=== PATIENT | female | born 1950 | race Caucasian/White ===

== ENCOUNTER → 2017-01-23 | Outpatient (CLI) | payer MEDICARE ==
[~2017-01-23] MED LIST: ACET-2267 PO; ALBU8.5H2 IH; ALPR0.5T7 PO; AMIT50TA3 PO; AMITRIPTYLINE; AMT50T; ASP81CT; ASPI-266 PO; ATOR20TA66 PO; BACL10TA PO; CEFD300C3 PO; CETI10TA20 PO; CHLR10C; CHLR10C PO; CHOL200018 PO; CYCL10TA45; CYCL10TA9; CYCL1DRO OU; DOXY100C49; EZET10TA5; FLUO40CA; FLUO40CA PO; FLUT1DIS26 INH; FLUT1DIS3 IH; FLX20C; FRSM40T; FURO20TA4; FURO40TA4 PO; Fluconazole PO; GLYC1DRO OU; IPRA3AMP11 INH; IPRA4AER IH; LEVO100T7 PO; LEVO500T80 PO; LEVO50TA63 PO; Levofloxacin PO; METO-272 PO; OXYC10TA63 PO; OXYC10TA7 PO; OXYCODONE HCL 10 MG PO; PNNLX50T; POTA10TA10 PO; PRD10T; PRD10T PO; PRED10TA PO; RT-ALBUINH INH; VITAMIN D
--- OUTSIDE RECORDS SUMMARY | 2017-01-23 10:40 | XMS REPORT | Continuity of Care Document ---
Author Author [facility] Organization [facility] Address Unknown Phone Unavailable Care Team Providers Care Cover Stripper Name Role Phone STEFANIA DEWITT DO PCP Advance Directives Directive Response Recorded Date/Time Advance Directives No 03/16/15 8:17pm Health Care Power of Antique Furniture Restorer Yes 03/16/15 8:17pm Organ Donor No 04/07/09 3:46am Resuscitation Status Full Code 03/16/15 8:17pm Problems No known problems or medical conditions. Medications Medication Dose Route Sig Days/Qty Instructions Order Date Discontinued Date Status Fluoxetine HCl 05/18/07 03/17/15 Discontinued Cyclobenzaprine HCl 05/18/07 03/17/15 Discontinued Amitriptyline HCl 05/18/07 03/17/15 Discontinued Furosemide 05/18/07 04/07/09 Discontinued Chlordiazepoxide HCl 10 Mg PO THREE TIMES A DAY 05/18/07 Active Ezetimibe 05/18/07 04/07/09 Discontinued Pentazocine HCl/Naloxone HCl 05/18/07 03/17/15 Discontinued Fluoxetine HCl (Prozac) 04/07/09 04/07/09 Discontinued Furosemide (Lasix) 04/07/09 03/17/15 Discontinued Chlordiazepoxide HCl 04/07/09 04/07/09 Discontinued Amitriptyline 04/07/09 04/07/09 Discontinued Aspirin 04/07/09 03/17/15 Discontinued Prednisone 04/07/09 03/17/15 Discontinued Cyclobenzaprine HCl (Flexeril) 04/07/09 04/07/09 Discontinued [Vitamin D] 04/07/09 03/17/15 Discontinued Doxycycline Hyclate 04/07/09 03/17/15 Discontinued Baclofen (Lioresal) 10 Mg PO BEDTIME 03/17/15 Active Fluoxetine HCl (Prozac) 40 Mg PO DAILY 03/17/15 Active Cholecalciferol (Vitamin D3) 2,000 Unit PO DAILY 03/17/15 Active Levothyroxine Sodium 50 Mcg PO DAILY 03/17/15 Active Ipratropium/Albuterol Sulfate 1 Puff IH DAILY PRN SHORTNESS OF BREATH 03/17/15 Active Oxycodone Hcl 10 Mg PO EVERY 6 HOURS PRN PAIN 03/17/15 Active Furosemide (Lasix) 40 Mg PO DAILY 03/17/15 Active Alprazolam 0.5 Mg PO EVERY 8HRS PRN ANXIETY 03/17/15 Active Aspirin 81 Mg PO DAILY 03/17/15 Active Amitriptyline HCl (Elavil) 50 Mg PO DAILY 03/17/15 Active Prednisone 10 Mg PO DIRECTED 63 Qty 03/20/15 Active Albuterol/Ipratropium 3 Ml INH EVERY 6 HOURS For Wheezing 1 Qty Active Social History Social History Problem Response Recorded Date/Time Alcohol Use Denies Use 03/16/2015 8:18pm Recreational Drug Use No 03/16/2015 8:18pm Recent Foreign Travel No 03/16/2015 8:22pm Recent Infectious Disease Exposure No 03/16/2015 8:18pm Hospitalization with Isolation Denies 03/20/2015 10:30am Sexually Transmitted Disease No 03/16/2015 8:18pm HIV/AIDS No 03/16/2015 8:18pm Smoking Status Current Everyday Smoker 03/16/2015 8:20pm Do you dip or chew tobacco? No 03/16/2015 8:20pm Query Response Start Date Stop Date Smoking Status Current Everyday Smoker Hospital Discharge Instructions Patient Instructions Physician Instructions New, Converted or Re-Newed RX: Transmitted to Pharmacy Plan of Care/Instructions/FU: 1. Home O2 - 2 lpm at bedtime daily. 2. Duoneb aerosols every 6 hours as needed for wheezing. 3. Acapella therapy every 6 hours as needed for congestion. 4. Follow up Dr. Dewitt in office 03/26/15 as previously scheduled. Activity as Tolerated: Yes Discharge Diet: Regular Diet Care Plan Patient Instructions:: 1. Home O2 - 2 lpm at bedtime daily.2. Duoneb aerosols every 6 hours as needed for wheezing.3. Acapella therapy every 6 hours as needed for congestion.4. Follow up Dr. Dewitt in office 03/26/15 as previously scheduled. Plan of Care Discharge Date 03/20/15 9:00am Disposition 30 STILL A PATIENT Instructions/Education Provided Chronic Obstructive Pulmonary Disease (DC) Forms Provided PDI Medical Prescriptions See Medications Section Referrals STEFANIA DEWITT DO (Unspecified) Address: [address] [place] [id number] Reason(s) for Referral: FOLLOW UP WITH DR AT PREVIOUS SCHEDULED APPOINTMENT Functional Status Query Response Date Recorded Comprehension Ability Understands Concepts March 19, 2015 8:00pm Allergies, Adverse Reactions, Alerts Allergen Type Severity Reaction Status Last Updated Codeine Allergy Unknown PATIENT TAKES OXYCODONE AT HOME Active 03/16/15 hydrocodone ([id number]) Allergy Unknown PATIENT TAKES OXYCODONE AT HOME Active 03/16/15 Immunizations Name Given Type Date of Pneumonia Vaccine 03/06/13 Historical Tetanus Booster (TDap) Unknown Historical Vital Signs Acute Vital Signs Vital Response Date/Time Temperature (Fahrenheit) 97.2 degrees F (97.6 - 99.5) Temperature (Calculated Celsius) 36.32751 degrees C (36.4 - 37.5) Temperature Source Tympanic Pulse Rate (adult) 97 bpm (60 - 90) Respiratory Rate 18 bpm (12 - 24) O2 Sat by Pulse Oximetry 91 % (88 - 100) Blood Pressure 127/75 mm Hg Pain Pain Intensity 0 Height (Feet) 5 feet Height (Inches) 2.00 inches Height (Calculated Centimeters) 157.912639 cm Weight (Pounds) 165 pounds Weight (Calculated Grams) 73017.742 gm Weight (Calculated Kilograms) 74.340632 kilograms Calculated BMI 30.18 Results Laboratory Results Test Name Result Units Flags Reference Collection Date/Time Result Date/ Time Comments White Blood Count 12.2 10^3/uL H 4.3-11.0 03/16/2015 7:13pm 03/16/2015 7: 39pm Red Blood Count 5.26 10^6/uL 4.35-5.85 03/16/2015 7:13pm 03/16/2015 7: 39pm Hemoglobin 16.0 G/DL 11.5-16.0 03/16/2015 7:03/16/2015 7:39pm Hematocrit 46 % 35-52 03/16/2015 7:03/16/2015 7:39pm Mean Corpuscular Volume 87 FL 80-99 03/16/2015 7:03/16/2015 7: 39pm Mean Corpuscular Hemoglobin 30 PG 25-34 03/16/2015 7:03/16/2015 7: 39pm Mean Corpuscular Hemoglobin Concent 35 G/DL 32-36 03/16/2015 7:09/2015 7:39pm Red Cell Distribution Width 12.7 % 10.0-14.5 03/16/2015 7:2014 7:39pm Platelet Count 356 10^3/uL 130-400 03/16/2015 7:03/16/2015 7:39pm Mean Platelet Volume 9.1 FL 7.4-10.4 03/16/2015 7:03/16/2015 7: 39pm Sodium Level 143 MMOL/L 135-145 03/16/2015 7:03/16/2015 7:44pm Potassium Level 3.6 MMOL/L 3.6-5.0 03/16/2015 7:03/16/2015 7:44pm Chloride Level 97 MMOL/L L 98-107 03/16/2015 7:03/16/2015 7:44pm Carbon Dioxide Level 33 MMOL/L H 21-32 03/16/2015 7:03/16/2015 7: 44pm Blood Urea Nitrogen 9 MG/DL 7-18 03/16/2015 7:03/16/2015 7:44pm Creatinine 0.82 MG/DL 0.60-1.30 03/16/2015 7:03/16/2015 7:44pm BUN/Creatinine Ratio 11 03/16/2015 7:03/16/2015 7:44pm Estimat Glomerular Filtration Rate > 60 03/16/2015 7:2014 7:44pm GFR INTERPRETIVE DATA UNITS FOR ESTIMATED GFR (eGFR): mL/min/1.73 M2 REFERENCE RANGE FOR ESTIMATED GFR (eGFR) eGFR NORMAL eGFR >60 MODERATELY DECREASED eGFR 30-59 SEVERLY DECREASED eGFR 15-29 KIDNEY FAILURE <15 (OR DIALYSIS) Glucose Level 89 MG/DL 70-105 03/16/2015 7:13pm 03/16/2015 7:44pm Calcium Level 9.7 MG/DL 8.5-10.1 03/16/2015 7:03/16/2015 7:44pm Total Bilirubin 0.7 MG/DL 0.1-1.0 03/16/2015 7:03/16/2015 7:44pm Alkaline Phosphatase 73 U/L 40-136 03/16/2015 7:03/16/2015 7:44pm Aspartate Amino Transf (AST/SGOT) 26 U/L 5-34 03/16/2015 7:2014 7:44pm Alanine Aminotransferase (ALT/SGPT) 23 U/L 0-55 03/16/2015 7:pm 03/16 7:44pm Total Protein 7.4 G/DL 6.4-8.2 03/16/2015 7:03/16/2015 7:44pm Albumin 4.4 G/DL 3.2-4.5 03/16/2015 7:03/16/2015 7:44pm Procedures No known history of procedures. Encounters Encounter Location Date/Time Discharged Inpatient [facility] 03/16/15 6:18pm
--- NOTE | 2017-01-23 18:45 | Diagnostic Imaging Report ---
Bilateral screening mammogram The current study was also evaluated with a Computer Aided Detection (CAD) system. INDICATION: Screening. No current complaints stated on the questionnaire. COMPARISON: 12/25/2015. FINDINGS: The breasts are composed of scattered fibroglandular densities. There are scattered benign-appearing calcifications. Allowing for technique and positional differences, no suspicious change is seen. IMPRESSION: No significant change. ACR BI-RADS Category 2: Benign findings. Result letter will be mailed to the patient. Note: At least 10% of breast cancer is not imaged by mammography. Dictated by: Dictated on workstation # [id number]
== END ==
LOC: RAD 10:36
PROVIDERS: ATTEND Internal Medicine
DX: Z12.31 Encounter for screening mammogram for malignant neoplasm of breast (principal)
CPT/HCPCS: 77067

== ENCOUNTER → 2018-11-21 | Outpatient (CLI) | payer MEDICARE ==
[~2018-11-21] MED LIST changes: -METO-272 PO; +METO-370 PO
--- NOTE | 2018-11-21 15:14 | Diagnostic Imaging Report ---
PROCEDURE: MRI lumbar spine. TECHNIQUE: Multiplanar, multisequence MRI of the lumbar spine was performed without contrast. INDICATION: Chronic low back pain. COMPARISON: Comparison is made with prior MRI of the lumbar spine performed 06/05/2012. FINDINGS: Curvature and alignment of the lumbar spine is normal. Vertebral body heights are maintained. No geographic marrow lesion or acute compression fracture is seen. There is generalized degenerative disc disease with variable disc space narrowing and desiccation. The conus appears to be unremarkable at the L1 level. T12-L1: No central canal or neuroforaminal narrowing is seen. L1-L2: Central canal remains patent. No neuroforaminal narrowing is seen. L2-L3: There is some ligamentous thickening and facet changes. Mild broad-based disc/osteophyte complex is present but central canal remains patent. There appears to be mild bilateral neuroforaminal narrowing. L3-L4: There is hypertrophic facet change as well as ligamentous thickening and broad-based disc/osteophyte complex. Mild narrowing of the central canal is noted. There is also mild bilateral neuroforaminal narrowing. L4-L5: Marked hypertrophic facet degenerative changes are seen. Facet changes do produce some mass effect on the thecal sac on the right side posteriorly. There is some trefoil configuration of the thecal sac. Mild central canal narrowing is noted. There is no significant neuroforaminal narrowing. L5-S1: Marked facet arthropathy is seen with hypertrophic changes. Central canal is patent. There is significant left and moderate right neuroforaminal narrowing. Paraspinous tissues are unremarkable. IMPRESSION: Lumbar spondylosis with multilevel central canal and neuroforaminal stenosis described level by level above. No acute compression fracture or geographic marrow lesion is seen. Dictated by: Dictated on workstation # [id number]
== END ==
LOC: RAD 13:43
PROVIDERS: ATTEND Internal Medicine
DX: M48.07 Spinal stenosis, lumbosacral region (principal); M46.87 Other specified inflammatory spondylopathies, lumbosacral region; M47.816 Spondylosis without myelopathy or radiculopathy, lumbar region; M51.36 Other intervertebral disc degeneration, lumbar region
CPT/HCPCS: 72148

== ENCOUNTER → 2020-06-03 | Outpatient (CLI) | payer MEDICARE ==
[~2020-06-03] MED LIST changes: -CETI10TA20 PO; +CETI10TA21 PO; -METO-370 PO; +METO50TA7 PO
--- NOTE | 2020-06-03 16:58 | Diagnostic Imaging Report ---
INDICATION: Screening. At this time there are no current complaints. EXAMINATION: Digital mammogram bilateral screening with CAD. 3D tomographic images were obtained and reviewed. The current study was also evaluated with a Computer Aided Detection (CAD) system. COMPARISON: This study was compared to the prior exams of 01/23/2017, 12/25/2015 and 11/27/2014. The current study was also evaluated with a Computer Aided Detection (CAD) system. FINDINGS: There are scattered fibroglandular densities in both breasts which could obscure a lesion. Overall, there does not appear to have been any significant change when compared to the prior exam. No primary or secondary sign of malignancy is noted. IMPRESSION: There is no radiographic evidence for malignancy. ACR BI-RADS Category 1: Negative. Result letter will be mailed to the patient. Note: At least 10% of breast cancer is not imaged by mammography. Dictated by: Dictated on workstation # [id number]
== END ==
LOC: RAD 15:30
PROVIDERS: ATTEND Internal Medicine
DX: Z12.31 Encounter for screening mammogram for malignant neoplasm of breast (principal)
CPT/HCPCS: 77063; 77067

== ENCOUNTER → 2022-03-14 | Outpatient (CLI) | payer MEDICARE ==
[~2022-03-14] MED LIST changes: -CETI10TA21 PO; +CETI10TA49 PO; -LEVO500T80 PO; +LEVO500T81 PO; +REGADENOSON 0.4 MG/5 ML SYR (LEXISCAN) IV ONE
[2022-03-14] MEDS: CATHETER FLUSH 10 ML SYR IVP PRN ×2 (07:10→07:14)
[2022-03-14 08:03] VITALS: BP 188/100
--- NOTE | 2022-03-14 15:58 | NUCLEAR STRESS TEST ---
[facility] NUCLEAR STRESS Date of procedure: 03/14/2022. Primary care provider: Mak Dewitt DO Admitting physician: Mak Dewitt DO. INDICATION: Chest pain and abnormal electrocardiogram. BASELINE ELECTROCARDIOGRAM: Sinus rhythm with frequent, multifocal premature ventricular complexes and nonspecific ST changes. NUCLEAR PROCEDURE: The patient was administered 11 mCi of intravenous technetium 99m Tetrofosmin at rest for the rest images. The patient was subsequently a dministered 30.5 mCi of intravenous technetium 99m Tetrofosmin at peak stress for the stress images. Following an appropriate wait after each injection, imaging was obtained. The images were subsequently processed and reformatted in the usual views. Gated imaging was obtained. The image quality was adequate with a mild degree of gastrointestinal attenuation artifact. CT attenuation correction was used as a adjunct to standard imaging. Both the corrected and uncorrected images were reviewed for interpretation. NUCLEAR RESULTS: There was normal myocardial perfusion in all segments without evidence of infarction or ischemia. There was normal left ventricular chamber size with an end-diastolic volume of 53 mL and an end-systolic volume of 23 mL. There was no evidence of transient ischemic dilatation. The TID ratio was 1.13. There was normal wall motion in all segments with a calculated ejection fraction of 57%. IMPRESSION: 1. This is the nuclear interpretation only for a pharmacologic nuclear stress test. Please see separate report for stress test interpretation. 2. There was normal myocardial perfusion in all segments without evidence of infarction or ischemia. 3. There was normal wall motion in all segments with a calculated ejection fraction of 57%. Certain portions of this document may have been dictated utilizing voice recognition technology. Inherent to this technology, typographical and grammatical errors may exist. As much as I am diligent to identify and correct these mistakes, some errors may remain in the document. FLORENTINO HOFFMAN JR, MD March 14, 2022 15:58
== END ==
LOC: CARD 07:00
PROVIDERS: ATTEND Internal Medicine
DX: R07.9 Chest pain, unspecified (principal); R94.31 Abnormal electrocardiogram [ECG] [EKG]
CPT/HCPCS: 78452; 93017; A9502

== ENCOUNTER → 2022-03-15 | Outpatient (CLI) | payer MEDICARE ==
[~2022-03-15] MED LIST changes: -REGADENOSON 0.4 MG/5 ML SYR (LEXISCAN) IV ONE
--- NOTE | 2022-03-15 09:47 | Diagnostic Imaging Report ---
INDICATION: Postmenopausal screening COMPARISON: 05/07/2010 FINDINGS: AP Spine L1-L4: [BMD (g/cm2): 1.226] [T-Score: 0.2] [Z-Score: 1.2] [BMD Previous: 1.155] [BMD % Change: 6.1] LT Hip Neck: [BMD (g/cm2): 1.007] [T-Score: -0.2] [Z-Score: 1.2] LT Hip Total: [BMD (g/cm2):1.057] [T-Score:0.4] [Z-Score: 1.5] [BMD Previous: 1.057] [BMD % Change: 0.8] RT Hip Neck: [BMD (g/cm2):1.045] [T-Score:0.0] [Z-Score:1.5] RT Hip Total: [BMD (g/cm2):1.096] [T-score:0.7] [Z-Score:1.9] [BMD Previous:1.061] [BMD % Change:3.3] *Indicates significant change from prior examination based on 95% confidence level. World Health Organization criteria for BMD interpretation classify patients as Normal (T-score at or above -1.0), Osteopenic (T-score between -1.0 and -2.5) or Osteoporotic (T-score at or below -2.5). LIMITATIONS AND MODIFICATION: None. FRACTURE RISK (FRAX SCORE): The ten year probability of (%): Major Osteoporotic Fracture: [na] Hip Fracture: [na] IMPRESSION: 1. Normal bone mineral density. 2. No significant change in bone mineral density since prior examination. 3. See below National Osteoporosis Foundation guidelines on when to potentially initiate pharmacologic therapy. Based on the National Osteoporosis Foundation Guidelines, pharmacologic treatment should be initiated in any of the following, unless clinical conditions suggest otherwise: * Any patient with prior fragility fracture of the hip or vertebrae. A spine fracture indicates 5X risk for subsequent spine fracture and 2X risk for subsequent hip fracture. * Osteoporosis (T-score <-2.5). * Postmenopausal women and men age 50 and older with low bone mass/osteopenia (T-score between -1.0 and -2.5) by DXA and 10-year major osteoporotic fracture greater than 20% or a 10-year probability of hip fracture greater than 3%. These fracture risks are supplied above in the FRAX score, if applicable. * Clinician judgement and/or patient preferences may indicate treatment for people with 10-year fracture probabilities above or below these levels. Dictated by: Dictated on workstation # [id number]
--- NOTE | 2022-03-15 14:11 | Diagnostic Imaging Report ---
IMPRESSION: 3-D bilateral screening mammogram with cad. CAD is utilized. The current study was also evaluated with a Computer Aided Detection (CAD) system. This study was compared to the prior exams as far back as 01/23/2017. At this time there are no current complaints. The current study was also evaluated with a Computer Aided Detection (CAD) system. FINDINGS: There are scattered fibroglandular densities in both breasts which could obscure a lesion. Overall, there does not appear to have been any significant change when compared to the prior exam. No primary or secondary sign of malignancy is noted. IMPRESSION: There is no radiographic evidence for malignancy. ACR category 1 ACR BI-RADS Category 1: Negative. Result letter will be mailed to the patient. Note: At least 10% of breast cancer is not imaged by mammography. Dictated by: Dictated on workstation # [id number]
== END ==
LOC: RAD 08:30
PROVIDERS: ATTEND Internal Medicine
DX: Z12.31 Encounter for screening mammogram for malignant neoplasm of breast (principal); Z13.820 Encounter for screening for osteoporosis; Z78.0 Asymptomatic menopausal state
CPT/HCPCS: 77063; 77067; 77080

== ENCOUNTER 2022-06-18 10:17 | Emergency (ER) | payer MEDICARE ==
[~2022-06-18] VITALS: Ht 154.9 cm; Wt 83.9 kg
[2022-06-18] MEDS ORDERED: RT-ALBUTEROL HFA 8.5 GM INHALER IH STA (11:11)
[2022-06-18] MEDS ORDERED: LACTATED RINGERS 1,000 ML IV ONE (11:15)
[2022-06-18] MEDS ORDERED: ACETAMINOPHEN 500 MG TAB (TYLENOL) PO ONE (11:15)
--- NOTE | 2022-06-18 11:37 | Diagnostic Imaging Report ---
EXAMINATION: Chest 1 view HISTORY: COVID 19 COMPARISON: 03/25/2015 FINDINGS: The lungs are clear without edema or pneumonia. No pleural effusion or pneumothorax. Heart size is normal. IMPRESSION: 1. Clear lungs. Report was faxed to [facility] by kim at 11:36AM.[facility] Dictated by: Dictated on workstation # [id number]
[2022-06-18 11:46] LABS: BASOPHILS % (AUTO) 0 % (0-10); EOSINOPHILS # (AUTO) 0.1 10^3/uL (0.0-0.3); EOSINOPHILS % (AUTO) 1 % (0-10); HEMATOCRIT 40 % (35-52); HEMOGLOBIN 13.9 g/dL (11.5-16.0); LYMPHOCYTES # (AUTO) 1.4 10^3/uL (1.0-4.0); LYMPHOCYTES % (AUTO) 15 % (12-44); MEAN CORPUSCULAR HEMOGLOBIN 29 pg (25-34); MEAN CORPUSCULAR HGB CONC 35 g/dL (32-36); MEAN CORPUSCULAR VOLUME 83 fL (80-99); MEAN PLATELET VOLUME 8.9 fL (9.0-12.2); MONOCYTES # (AUTO) 0.8 10^3/uL (0.0-1.0); MONOCYTES % (AUTO) 9 % (0-12); NEUTROPHILS # (AUTO) 6.6 10^3/uL (1.8-7.8); NEUTROPHILS % (AUTO) 74 % (42-75); PLATELET COUNT 190 10^3/uL (130-400); WHITE BLOOD COUNT 8.9 10^3/uL (4.3-11.0)
[2022-06-18 11:59] LABS: POTASSIUM 3.2 MMOL/L (3.6-5.0)
[2022-06-18 12:01] LABS: CALCIUM 9.1 MG/DL (8.5-10.1)
[2022-06-18 12:04] LABS: BILIRUBIN,TOTAL 1.1 MG/DL (0.1-1.0)
[2022-06-18 12:06] LABS: CREATININE SERUM 0.94 MG/DL (0.60-1.30)
[2022-06-18] MEDS ORDERED: KCL 10 MEQ TAB (MICRO K) PO ONE (13:00)
[2022-06-18] MEDS ORDERED: BEBTELOVIMAB 175 MG/2 ML VIAL IV ONE (13:15)
--- NOTE | 2022-06-18 13:16 | ED General ---
General Chief Complaint: COVID19 Suspect/Confirmed Stated Complaint: CONGESTION/FEVER Nursing Triage Note: pt to rm 9 with co congestion, cough, soa, and fever since 06/15/22. pt a&ox4 Source of Information: Patient Exam Limitations: No Limitations History of Present Illness Date Seen by Provider: Jun 18, 2022 Time Seen by Provider: 10:27 Initial Comments This is 72-year-old woman presents to the emergency room with headache, sore throat, fever, and cough for the past 3 days. She denies nausea, vomiting, or diarrhea. She has mild fever and tachycardia. Vital signs and respiratory status are otherwise stable. She normally uses oxygen at 3 L/min as needed at home. Allergies and Home Medications Allergies Coded Allergies: codeine (Unverified Allergy, Unknown, PATIENT TAKES OXYCODONE AT HOME, 03/16/15) hydrocodone (Unverified Allergy, Unknown, PATIENT TAKES OXYCODONE AT HOME, 03/16/15) Patient Home Medication List Home Medication List Reviewed: Yes Acetaminophen (Tylenol Extra Strength) 500 Mg Tablet, 500 MG PO Q6H PRN for PAIN, (Reported) Entered as Reported by: SUSHMA ALMANZA on 02/17/16 1502 Albuterol Sulfate (Proair Hfa) 8.5 Gm Hfa.aer.ad, 2 PUFF INH Q4H PRN for SHORTN ESS OF BREATH, (Reported) Entered as Reported by: SUSHMA ALMANZA on 02/17/16 1502 Albuterol/Ipratropium (Duoneb Rt) 3 Ml Nebu, 3 ML INH Q6H PRN for WHEEZING, (Reported) Entered as Reported by: SUSHMA ALMNAZA on 03/25/15 0915 Alprazolam (Alprazolam) 0.5 Mg Tablet, 0.5 MG PO Q8H PRN for ANXIETY, (Reported) Entered as Reported by: SUSHMA ALMANZA on 02/17/16 1502 Amitriptyline HCl (Amitriptyline HCl) 50 Mg Tablet, 50 MG PO HS, (Reported) Entered as Reported by: SUSHMA ALMANZA on 02/17/16 1502 Aspirin (Aspirin Ec Low Dose) 81 Mg Tablet.dr, 81 MG PO DAILY, (Reported) Entered as Reported by: BROOK BROWN on 03/17/15 0911 Atorvastatin Calcium (Atorvastatin Calcium) 20 Mg Tablet, 20 MG PO HS, (Reported) Entered as Reported by: SUSHMA ALMANZA on 02/17/16 150 Baclofen (Baclofen) 10 Mg Tablet, 10 MG PO BID, (Reported) Entered as Reported by: SUSHMA ALMANZA on 02/17/16 150 Cefdinir (Cefdinir) 300 Mg Capsule, 300 MG PO BID Prescribed by: GALDINO RUBIN on 02/19/16 0932 Cetirizine HCl (Zyrtec) 10 Mg Tablet, 10 MG PO HS, (Reported) Entered as Reported by: SUSHMA ALMANZA on 02/17/16 150 Chlordiazepoxide Hcl (Librium) 10 Mg Capsule, 10 MG PO TID PRN for ANXIETY, (Reported) Entered as Reported by: FREDRICK RODRIGUEZ on 05/18/07 1402 Cholecalciferol (Vitamin D3) (Vitamin D-3) 2,000 Unit Capsule, 2,000 UNIT PO DAILY, (Reported) Entered as Reported by: BROOK BROWN on 03/17/15 0909 Cyclosporine (Restasis) 1 Each Droperette, 1 DROP OU BID, (Reported) Entered as Reported by: SUSHMA ALMANZA on 02/17/16 150 Fluoxetine HCl (Fluoxetine HCl) 40 Mg Capsule, 40 MG PO DAILY, (Reported) Entered as Reported by: SUSHMA ALMANZA on 02/17/16 150 Fluticasone/Salmeterol (Advair 250-50 Diskus) 1 Each Blst.w.dev, 1 PUFF INH BID, (Reported) Entered as Reported by: SUSHMA ALMANZA on 02/17/16 150 Furosemide (Furosemide) 40 Mg Tablet, 40 MG PO DAILY, (Reported) Entered as Reported by: SUSHMA ALMANZA on 02/17/16 150 Glycerin/Propylene Glycol (Soothe Lubricant Eye Drops) 1 Each Droperette, 1 DROP OU BID, (Reported) Entered as Reported by: SUSHMA ALMANZA on 02/17/16 150 Levothyroxine Sodium (Levothyroxine Sodium) 100 Mcg Tablet, 100 MCG PO HS, (Reported) Entered as Reported by: SUSHMA ALMANZA on 02/17/16 150 Metoprolol Succinate (Metoprolol Succinate) 50 Mg Tab.er.24h, 50 MG PO DAILY Prescribed by: GALDINO RUBIN on 02/19/16 0932 Oxycodone HCl (Oxycodone HCl) 10 Mg Tablet, 10 MG PO QID PRN for PAIN, (Reported) Entered as Reported by: SUSHMA ALMANZA on 02/17/16 1502 Potassium Chloride (Potassium Chloride) 10 Meq Tablet.er, 10 MEQ PO DAILY Prescribed by: GALDINO RUBIN on 02/19/16 0932 Review of Systems Review of Systems Constitutional: see HPI EENTM: see HPI Respiratory: see HPI Cardiovascular: see HPI Gastrointestinal: no symptoms reported Genitourinary: no symptoms reported Musculoskeletal: no symptoms reported Skin: no symptoms reported Psychiatric/Neurological: See HPI Hematologic/Lymphatic: No Symptoms Reported Immunological/Allergic: no symptoms reported Past Ysmllwg-Eolxzc-Qkomfh Hx Patient Social History Tobacco Use?: No Smoking Status: Former Smoker Substance use?: No Alcohol Use?: No Pt feels they are or have been: No Immunizations Up To Date Tetanus Booster (TDap): Unknown PED Vaccines UTD: No Past Medical History Surgeries: Yes Bladder Surgery, Eye Surgery, Hysterectomy, Oophorectomy Respiratory: Yes Chronic Bronchitis, COPD Currently Using CPAP: No Currently Using BIPAP: No Cardiac: Yes Hypertension Neurological: Yes (Spinal stenosis) Reproductive Disorders: No 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 Sexually Transmitted Disease: No HIV/AIDS: No Gastrointestinal: No Musculoskeletal: Yes (Spinal stenosis) Arthritis, Fibromyalgia, Chronic Back Pain Hypothyroidsim HEENT: No Loss of Vision: Denies Hearing Impairment: Hard of Hearing Psychosocial: Yes Anxiety, Depression Family Medical History COPD G8 SISTER G8 SISTER Cardiovascular disease 19 FATHER 19 MOTHER G8 BROTHER G8 BROTHER G8 BROTHER G8 SISTER G8 SISTER Diabetes mellitus G8 BROTHER G8 SISTER Myocardial infarction 19 FATHER Physical Exam Vital Signs Vital Signs - First Documented 06/18/22 10:29 Temp 37.9 Pulse 108 Resp 21 B/P (MAP) 115/59 (77) Pulse Ox 93 O2 Delivery Room Air Capillary Refill : Less Than 3 Seconds Height, Weight, BMI Height: 5'1" Weight: 150lbs. 0.0oz. [id number]; 34.00 BMI Method:Estimated General Appearance: No Apparent Distress, WD/WN HEENT: PERRL/EOMI, Normal ENT Inspection, Other (Oropharynx somewhat dry) Neck: Normal Inspection Respiratory: No Accessory Muscle Use, No Respiratory Distress, Wheezing (Minimal) Cardiovascular: No Edema, No Murmur, Tachycardia Gastrointestinal: Normal Bowel Sounds, Non Tender, Soft Extremity: Normal Inspection, No Pedal Edema Neurologic/Psychiatric: Alert, Oriented x3, No Motor/Sensory Deficits, Normal Mood/Affect Skin: Normal Color, Warm/Dry Progress/Results/Core Measures Suspected Sepsis SIRS Temperature: Pulse: 108 Respiratory Rate: 21 Laboratory Tests 06/18/22 11:35: White Blood Count 8.9 Blood Pressure 115 /59 Mean: 77 Laboratory Tests 06/18/22 11:35: Creatinine 0.94, Platelet Count 190, Total Bilirubin 1.1H Results/Orders Lab Results Laboratory Tests Test 06/18/22 10:35 06/18/22 11:35 Range/Units Influenza Type A (RT-PCR) Not Detected Not Detecte Influenza Type B (RT-PCR) Not Detected Not Detecte SARS-CoV-2 RNA (RT-PCR) Detected H Not Detecte White Blood Count 8.9 4.3-11.0 10^3/uL Red Blood Count 4.88 3.80-5.11 10^6/uL Hemoglobin 13.9 11.5-16.0 g/dL Hematocrit 40 35-52 % Mean Corpuscular Volume 83 80-99 fL Mean Corpuscular Hemoglobin 29 25-34 pg Mean Corpuscular Hemoglobin Concent 35 32-36 g/dL Red Cell Distribution Width 12.9 10.0-14.5 % Platelet Count 190 130-400 10^3/uL Mean Platelet Volume 8.9 L 9.0-12.2 fL Immature Granulocyte % (Auto) 1 % Neutrophils (%) (Auto) 74 42-75 % Lymphocytes (%) (Auto) 15 12-44 % Monocytes (%) (Auto) 9 0-12 % Eosinophils (%) (Auto) 1 0-10 % Basophils (%) (Auto) 0 0-10 % Neutrophils # (Auto) 6.6 1.8-7.8 10^3/uL Lymphocytes # (Auto) 1.4 1.0-4.0 10^3/uL Monocytes # (Auto) 0.8 0.0-1.0 10^3/uL Eosinophils # (Auto) 0.1 0.0-0.3 10^3/uL Basophils # (Auto) 0.0 0.0-0.1 10^3/uL Immature Granulocyte # (Auto) 0.0 0.0-0.1 10^3/uL Sodium Level 135 135-145 MMOL/L Potassium Level 3.2 L 3.6-5.0 MMOL/L Chloride Level 97 L 98-107 MMOL/L Carbon Dioxide Level 27 21-32 MMOL/L Anion Gap 11 5-14 MMOL/L Blood Urea Nitrogen 7 7-18 MG/DL Creatinine 0.94 0.60-1.30 MG/DL Estimat Glomerular Filtration Rate 64 BUN/Creatinine Ratio 7 Glucose Level 119 H 70-105 MG/DL Calcium Level 9.1 8.5-10.1 MG/DL Corrected Calcium 9.1 8.5-10.1 MG/DL Total Bilirubin 1.1 H 0.1-1.0 MG/DL Aspartate Amino Transf (AST/SGOT) 50 H 5-34 U/L Alanine Aminotransferase (ALT/SGPT) 26 0-55 U/L Alkaline Phosphatase 77 40-136 U/L C-Reactive Protein High Sensitivity 2.51 H 0.00-0.50 MG/DL Total Protein 7.0 6.4-8.2 GM/DL Albumin 4.0 3.2-4.5 GM/DL My Orders Orders - KEON GALLARDO MD Covid 19 Inhouse Test (06/18/22 10:26) Influenza A And B By Pcr (06/18/22 10:26) Acetaminophen Tablet (Tylenol Tablet) (06/18/22 11:15) Ed Iv/Invasive Line Start (06/18/22 11:11) Lactated Ringers (Lr 1000 Ml Iv Solution (06/18/22 11:15) Albuterol Inhaler (Albuterol) (06/18/22 11:11) Cbc With Automated Diff (06/18/22 11:11) Comprehensive Metabolic Panel (06/18/22 11:11) Hs C Reactive Protein (06/18/22 11:11) Chest 1 View, Ap/Pa Only (06/18/22 11:11) Potassium Chloride (Tablet) (Klor Con Ta (06/18/22 13:00) Bebtelovimab (Bebtelovimab) (06/18/22 13:15) Medications Given in ED Vital Signs/I&O 06/18/22 06/18/22 06/18/22 10:29 11:27 15:12 Temp 37.9 37.7 36.2 Pulse 108 90 Resp 21 23 B/P (MAP) 115/59 (77) 122/61 Pulse Ox 93 93 O2 Delivery Room Air Room Air Capillary Refill : Less Than 3 Seconds Blood Pressure Mean: 77 Progress Note : Progress Note She was hydrated with a liter of IV fluid. Tylenol was given for fever. Albuterol inhaler was given for shortness of breath. Treatments improved her status. Oxygen saturations stayed in the 89 to 93% range on room air. Patient does normally use oxygen at home and presently has a supply. She does not seem to be off of her baseline respiratory status. We discussed Paxlovid versus mono clonal antibody therapy and the emergency authorization usage. Patient has multiple medications that could have interactions with Paxlovid. Therefore I suggested trying monoclonal antibody therapy. She accepted this course of treatment and it was provided in the ER. She had no complications with the treatment. See discharge instructions for further discussion. Oral potassium was given for hypokalemia. Departure Impression Primary Impression: COVID-19 Additional Impressions: Hypokalemia COPD exacerbation Disposition: 01 HOME, SELF-CARE Condition: Improved Departure-Patient Inst. Decision time for Depature: 13:13 Referrals: STEFANIA CROWDER DO (PCP/Family) Primary Care Physician Patient Instructions: Bebtelovimab FDA Fact Sheet, COVID-19 ED Add. Discharge Instructions: Drink plenty of clear liquids to stay well-hydrated. Try to eat a well-balanced diet. Take a multivitamin daily. Use your inhaler 1 to 4 puffs in a 4-hour period of time as needed for wheezing or shortness of breath. Be sure to remain active, walking about the house and outside as tolerated, and changing positions often when at rest. Avoid prolonged periods of time being sedentary or in bed. This will greatly improve breathing during COVID. You may use Tylenol (acetaminophen) up to 1000 mg every 6 hours as needed for aches, pains, and fevers. You may use ibuprofen up to 600 mg every 6 hours as needed for pain and fever not controlled by Tylenol. Check your oxygen saturations several times a day and at times you feel more short of breath. If you cannot maintain oxygen saturations greater than 92% on 3 L nasal cannula, please return to the emergency room. Use your oxygen continuously until your symptoms of COVID have resolved. Remain in quarantine for at least 5 full days from the first full day of symptoms. If your primary symptoms have resolved after 5 days, you may come out of quarantine but you should mask for an additional 5 days. Call with questions or concerns. Return to care if you have worsening symptoms. All discharge instructions reviewed with patient and/or family. Voiced understanding. KEON GALLARDO MD Jun 18, 2022 13:16
[2022-06-18 15:12] VITALS: BP 122/61
== END 2022-06-18 15:12 | disposition home or self-care (01) ==
LOC: EDUNIT# 10:17 → ER 10:20
DX: U07.1 COVID-19 (principal); J44.1 Chronic obstructive pulmonary disease with (acute) exacerbation; E87.6 Hypokalemia; Z87.891 Personal history of nicotine dependence
CPT/HCPCS: 36415; 71045; 80053; 85025; 86141; 87636

== ENCOUNTER → 2022-10-19 | Outpatient (CLI) | payer MEDICARE ==
[~2022-10-19] MED LIST changes: +ALBU8.5H6 INH; +LEVO-55 PO; -LEVO500T81 PO; -RT-ALBUINH INH
--- NOTE | 2022-10-19 17:07 | Diagnostic Imaging Report ---
PROCEDURE: US Thyroid. TECHNIQUE: Multiple real-time grayscale images were obtained of the thyroid in various projections. INDICATION: Thyroid nodule. No priors for direct comparison. Correlated with the CT soft tissue neck 06/10/2016. FINDINGS: Thyroid is somewhat small and diffusely heterogeneous, not clearly changed when correlated with the remote CT, its right lobe is about 3.9 x 1 cm, its left lobe is about 3.9 x 1.2 cm. The isthmus is 2 mm thick. There is no abnormal elevation of the color Doppler blood flow and there is no discrete solid or cystic thyroidal mass. IMPRESSION: Somewhat heterogeneous thyroid with no mass or abnormal hypervascularity. Dictated by: Dictated on workstation # [id number]
== END ==
LOC: RAD 12:30
PROVIDERS: ATTEND Internal Medicine
DX: E07.89 Other specified disorders of thyroid (principal); E04.1 Nontoxic single thyroid nodule; M19.90 Unspecified osteoarthritis, unspecified site; E03.8 Other specified hypothyroidism
CPT/HCPCS: 76536